=== PATIENT | female | born 1985 | race Caucasian/White ===

== ENCOUNTER 2018-06-14 03:09 | Emergency (ER) | payer SELFPAY ==
[~2018-06-14] VITALS: Wt 62.5 kg
[2018-06-14 03:14] VITALS: RESP 18
[2018-06-14] MEDS ORDERED: KETOROLAC 30 MG INJ IV STA (06:16)
[2018-06-14] MEDS ORDERED: SOD CHLORIDE 0.9% 1,000 ML IV STA (06:16)
[2018-06-14] MEDS ORDERED: ONDANSETRON 4 MG INJ IV STA (06:16)
[2018-06-14] MEDS ORDERED: HYDR-4011 PO (07:27)
[2018-06-14] MEDS ORDERED: TAMS-14 PO (07:27)
[2018-06-14 07:54] VITALS: BP 130/73; PULSE 61
--- NOTE | 2018-06-14 08:47 | ERD ---
ER Documentation Chief Complaint Chief Complaint LOWER LEFT BACK PAIN, HX OF KIDNEY STONES HPI 33-year-old female presenting with left lower back pain. She has a history of kidney stones is been seen multiple times only across with multiple CT scans. Patient is awaiting an authorization to see a neurologist however has not been g ranted authorization and is pending at this time. Over the last 3-4 months her pain is gotten worse and she has some dysuria. She denies any hematuria. Has not taken medication today for pain. Denies medical problems. NKDA. Surgical history tubes tied. Social history smokes marijuana occasionally. ROS All systems reviewed and are negative except as per history of present illness. Medications Home Meds Active Scripts Tamsulosin Hcl* (Flomax*) 0.4 Mg Cap.er.24h, 0.4 MG PO BID, #30 CAP Prov:KAMLESH SULLIVAN PA-C 06/14/18 Hydrocodone/Acetaminophen ([place] 5-325 Tablet) 1 Each Tablet, 1 TAB PO Q6H PRN for PAIN, #7 TAB Prov:KAMLESH SULLIVAN PA-C 06/14/18 Allergies Allergies: Coded Allergies: No Known Allergy (Unverified , 06/14/18) PMhx/Soc Medical and Surgical Hx: pt denies Medical Hx, pt denies Surgical Hx History of Surgery: No Anesthesia Reaction: No Hx Neurological Disorder: No Hx Respiratory Disorders: No Hx Cardiac Disorders: No Hx Psychiatric Problems: No Hx Miscellaneous Medical Probl: Yes (KIDNEY STONES) Hx Alcohol Use: Yes (occasionally) Hx Substance Use: Yes (marijuana occasionally) Hx Tobacco Use: No Smoking Status: Never smoker FmHx Family History: No diabetes, No coronary disease, No other Physical Exam Vitals Vital Signs Date Temp Pulse Resp B/P (MAP) Pulse Ox O2 O2 Flow FiO2 Time Delivery Rate 06/14/18 61 130/73 99 Room Air 07:54 (92) 06/14/18 97.9 92 18 148/75 99 03:14 (99) Physical Exam GENERAL: The patient is well-appearing, well-nourished, in no acute distress CHEST: Clear to auscultation bilaterally. There are no rales, wheezes or rhonchi. HEART: Regular rate and rhythm. No murmurs, clicks, rubs or gallops. ABDOMEN:Soft, nontender and nondistended. Good bowel sounds. No rebound or guarding. No gross peritonitis. No gross organomegaly or masses. Mild tenderness palpation over the lower pelvic region. BACK: No midline or flank tenderness. Result Diagram: 06/14/18 0630 06/14/18 0630 Results 24 hrs Laboratory Tests Test 06/14/18 06:30 06/14/18 06:37 White Blood Count 9.4 10^3/ul Red Blood Count 4.09 10^6/ul Hemoglobin 12.0 g/dl Hematocrit 36.5 % Mean Corpuscular Volume 89.2 fl Mean Corpuscular Hemoglobin 29.3 pg Mean Corpuscular Hemoglobin Concent 32.9 g/dl Red Cell Distribution Width 12.7 % Platelet Count 288 10^3/UL Mean Platelet Volume 10.6 fl Immature Granulocytes % 0.300 % Neutrophils % 47.4 % Lymphocytes % 43.2 % Monocytes % 5.4 % Eosinophils % 3.1 % Basophils % 0.6 % Nucleated Red Blood Cells % 0.0 /100WBC Immature Granulocytes # 0.030 10^3/ul Neutrophils # 4.5 10^3/ul Lymphocytes # 4.1 10^3/ul Monocytes # 0.5 10^3/ul Eosinophils # 0.3 10^3/ul Basophils # 0.1 10^3/ul Nucleated Red Blood Cells # 0.0 10^3/ul Urine Color STRAW Urine Clarity CLEAR Urine pH 6.0 Urine Specific Bunn 1.015 Urine Ketones NEGATIVE mg/dL Urine Nitrite NEGATIVE mg/dL Urine Bilirubin NEGATIVE mg/dL Urine Urobilinogen NEGATIVE mg/dL Urine Leukocyte Esterase NEGATIVE Park/ul Urine Microscopic RBC 5 /HPF Urine Microscopic WBC 1 /HPF Urine Hemoglobin 1+ mg/dL Urine Glucose NEGATIVE mg/dL Urine Total Protein NEGATIVE mg/dl Sodium Level 142 mmol/L Potassium Level 3.6 mmol/L Chloride Level 103 mmol/L Carbon Dioxide Level 30 mmol/L Anion Gap 9 Blood Urea Nitrogen 20 mg/dl Creatinine 0.88 mg/dl Est Glomerular Filtrat Rate mL/min > 60 mL/min Glucose Level 84 mg/dl Calcium Level 9.3 mg/dl Total Bilirubin 0.0 mg/dl Direct Bilirubin 0.00 mg/dl Indirect Bilirubin 0.0 mg/dl Aspartate Amino Transf (AST/SGOT) 21 IU/L Alanine Aminotransferase (ALT/SGPT) 21 IU/L Alkaline Phosphatase 81 IU/L Total Protein 7.5 g/dl Albumin 4.2 g/dl Globulin 3.30 g/dl Albumin/Globulin Ratio 1.27 Lipase 126 U/L POC Beta HCG, Qualitative NEGATIVE Current Medications Medications Dose Sig/Enrique Start Time Status Last (Trade) Ordered Route PRN Stop Time Admin Dose Reason Admin Sodium 1,000 ml @ Q1H STAT 06/14/18 DC 06/14/18 Chloride 1,000 mls/hr IV 06:16 06:40 06/14/18 07:15 Ondansetron 4 mg ONCE STAT 06/14/18 DC 06/14/18 HCl (Zofran IV 06:16 06:40 Inj) 06/14/18 06:19 Ketorolac 30 mg ONCE STAT 06/14/18 DC 06/14/18 Tromethamine IV 06:16 06:40 (Toradol) 06/14/18 06:19 Procedures/MDM DIAGNOSTIC IMAGING REPORT Patient: NIKOLAS HORAN DOB: 1985 Age: 33 Sex: F MR #: [id number] DOS: 06/14/1816 Ordering MD: JOSE A SULLIVAN PA-C Location: [facility] Room/Bed: PROCEDURE: US Pelvis. CLINICAL INDICATION: Pelvic pain TECHNIQUE: Sonographic evaluation of the pelvis was performed utilizing a transabdominal technique. Images were reviewed on the high-resolution PACS workstation. COMPARISON: No prior studies are available for comparison. FINDINGS: The uterus is normal in size, echogenicity, and morphology, measuring approximately 9.3 x 4.2 x 5.6 cm. The endometrium is normal for a menstrual age female measuring approximately 12 mm in diameter. Evaluation is somewhat limited due to lack of transvaginal imaging. The right ovary measures 2.8 x 1.0 x 2.0 cm in dimension. The left ovary measures 3.4 x 1.8 x 2.7 cm in dimension. The ovaries are symmetric in size, echogenicity, and morphology. There are no adnexal masses. There is no significant free fluid in the pelvis. The left distal ureter is dilated. IMPRESSION: Dilated left distal ureter. Otherwise, unremarkable pelvic ultrasound. DIAGNOSTIC IMAGING REPORT Patient: NIKOLAS HORAN DOB: 1985 Age: 33 Sex: F [id number] DOS: 06/14/18 0616 Ordering MD: JOSE A SULLIVAN PA-C Location: [facility] Room/Bed: PROCEDURE: Renal US. CLINICAL INDICATION: Flank pain TECHNIQUE: Multiple sonographic images of the kidneys were obtained. The images were reviewed on a PACS workstation. COMPARISON: No prior studies are available for comparison. FINDINGS: The right kidney measures 11.7 cm . There is no hydronephrosis. The left kidney measures 12.1 cm . There is severe hydronephrosis. There is no sonographic evidence for nephrolithiasis. The urinary bladder is grossly unremarkable. IMPRESSION: Severe left-sided hydronephrosis. No sonographic evidence for nephrolithiasis. ER Course: 1L NS and Toradol given ED. Pain controlled. Dr. Salinas consulted and given patient does not have findings consistent with acute kidney failure or infectious process patient will be discharged with supportive pain medication and recommended close follow-up. MDM: 3-year-old female presenting with left-sided flank pain. She has severe hydronephrosis however no signs of infection on urinalysis. Urine will be sent for culture. I have low suspicion for kidney disease as patient's BUN and cre atinine are stable and within normal ranges on blood work. Patient is recommended to follow-up with urologist and edge kitter as previously planned and recommended to follow-up with primary care. Patient was told if her symptoms change or worsen to immediately return to ER. All questions answered at discharge Departure Diagnosis: Primary Impression: Flank pain Condition: Stable Patient Instructions: Kidney Stone W/ Colic Referrals: [facility] YOU HAVE RECEIVED A MEDICAL SCREENING EXAM AND THE RESULTS INDICATE THAT YOU DO NOT HAVE A CONDITION THAT REQUIRES URGENT TREATMENT IN THE EMERGENCY DEPARTMENT. FURTHER EVALUATION AND TREATMENT OF YOUR CONDITION CAN WAIT UNTIL YOU ARE SEEN IN YOUR DOCTORS OFFICE WITHIN THE NEXT 1-2 DAYS. IT IS YOUR RESPONSIBILITY TO MAKE AN APPOINTMENT FOR FOLOW-UP CARE. IF YOU HAVE A PRIMARY DOCTOR --you should call your primary doctor and schedule an appointment IF YOU DO NOT HAVE A PRIMARY DOCTOR YOU CAN CALL OUR PHYSICIAN REFERRAL HOTLINE AT IF YOU CAN NOT AFFORD TO SEE A PHYSICIAN YOU CAN CHOSE FROM THE FOLLOWING [facility] [id number] [facility] [address] [facility] [facility] [address] [facility] [address] [facility] [address] [facility]. [facility] [address] Additional Instructions: FOLLOW UP WITH YOUR PRIMARY CARE PHYSICIAN TOMORROW.Return to this facility if you are not improving as expected. KAMLESH SULLIVAN PA-C Jun 14, 2018 08:47
== END 2018-06-14 07:57 | disposition home or self-care (01) ==
LOC: FTE 03:09
DX: R10.2 Pelvic and perineal pain (principal)
CPT/HCPCS: 36415; 76775; 76856; 80053; 81001; 81025; 83690; 85025; 87086; 96374; 96375; 99285; J1885; J2405; J7030